=== PATIENT | male | born 1935 | race African-American/Black ===

== ENCOUNTER → 2016-11-03 | Day surgery (SDC) | payer OTHER ==
[~2016-11-03] MED LIST: ALBUTEROL2.5 MG/3 M; ASPIRIN81 M2 PO; CARVEDILOL12.5 MG PO; CLOPIDOGREL75 MG PO; FLEXERIL10 M1 PO; LASIX PO; NITROGLYCERIN0.3 M1; OMEPRAZOLE20 M1 PO; PROAIR HFA8.5 GM INH; SIMVASTATIN20 MG PO; SYMBICORT INH; XODOL 7.5-3001 EACH PO
--- NOTE | ~2016-11-03 | OR ---
Unit #: [id number] #: [id number] Patient: PAVEL RUIZ [id number] [address] [place], [place] [address] [id number] O MR#: [id number] NAME: PAVEL RUIZ ROOM: Date of Procedure: 11/03/2016 Admission Date: 11/03/2016 Surgeon: Jonathan Huber M.D. : 1935 Attending Physician: Jonathan Huber M.D. Primary Care Physician: Yasmine Miller M.D. OPERATIVE REPORT PREOPERATIVE DIAGNOSES Back pain, radiculopathy, spinal stenosis, spondylolisthesis, degenerative disk disease. POSTOPERATIVE DIAGNOSES Back pain, radiculopathy, spinal stenosis, spondylolisthesis, degenerative disk disease. PROCEDURE PERFORMED Lumbar epidural steroid injection with intravenous sedation and fluoroscopic guidance for needle localization. INDICATIONS FOR PROCEDURE The patient is a 80-year-old male with multiyear history of worsening back and lower extremity pain. His symptoms gotten quite significantly consistent with stenosis as well as nerve root impingement. He failed to settle with conservative rehabilitative treatment. Plan is for trial of epidural steroids based on his history, pathology, symptomatology, and treatment options. DESCRIPTION OF PROCEDURE The patient was placed in seated position. Standard monitors were applied. 2 mg of Versed were given for sedation and anxiolysis, which were adequate. Vital signs remained stable. Sterile prep and drape then of lumbar area was performed. The skin then at the L4-L5 level was localized with 1% lidocaine. An 18-gauge Hustead needle was then advanced via loss of resistance technique and fluoroscopic guidance in toward the epidural space. After confirming proper positioning with fluoroscopy and radiographic contrast, 80 mg of Depo-Medrol and 4 mL of 0.125% bupivacaine were deposited. The patient tolerated the procedure otherwise well and was discharged to recovery room in stable condition. Dictated by... Jonathan Huber M.D. LHP/modl TD: 11/04/2016 01:46 JOB #: [id number] Unit #: [id number] #: [id number] Patient: PAVEL RUIZ OPERATIVE REPORT Page 1 of 1 X Jonathan Huber MD X PROCEDURE OPERATIVE NOTE
== END | disposition home or self-care (01) ==
LOC: CCSC 07:49
DX: M51.16 Intervertebral disc disorders with radiculopathy, lumbar region (principal); M43.16 Spondylolisthesis, lumbar region; M48.06 Spinal stenosis, lumbar region
CPT/HCPCS: J1040; J2250

== ENCOUNTER → 2016-11-11 | Outpatient (CLI) | payer OTHER ==
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
== END | disposition home or self-care (01) ==
LOC: CMRI 12:42
DX: M54.12 Radiculopathy, cervical region (principal); M48.02 Spinal stenosis, cervical region; M99.82 Other biomechanical lesions of thoracic region; M25.78 Osteophyte, vertebrae; M43.12 Spondylolisthesis, cervical region
CPT/HCPCS: 72141

== ENCOUNTER → 2016-12-09 | Outpatient (CLI) | payer OTHER | END | disposition home or self-care (01) | LOC: CECH 13:19 | DX: I34.0 Nonrheumatic mitral (valve) insufficiency (principal); I10 Essential (primary) hypertension; I25.10 Atherosclerotic heart disease of native coronary artery without angina pectoris; R06.02 Shortness of breath; I51.7 Cardiomegaly; I36.1 Nonrheumatic tricuspid (valve) insufficiency; I37.1 Nonrheumatic pulmonary valve insufficiency | CPT/HCPCS: 93306 ==

== ENCOUNTER 2017-02-08 21:11 | Emergency (ER) | payer OTHER ==
[~2017-02-08] VITALS: Ht 182.9 cm; Wt 83.9 kg
--- NOTE | ~2017-02-08 | CR150 ---
[facility] A Service of [facility] & [facility] RADIOLOGY TEXT RESULTS PATIENT: PAVEL RUIZ LOCATION: [facility] : 37 UNIT #: [id number] AGE: [address]: Angel Bermudez SEX: M ORDER DR: [id number] [facility] [address] [place], [place] [address] [id number] E MR#: [id number] Acc #: [id number] NAME: PAVEL RUIZ : 1935 SEX: M STUDY DATE/TIME: 02/08/2017 22:58 UNIT: [facility] ROOM: STUDY DESCRIPTION: CR Hip Min 2 Views Lt Attending Physician: Angel Bermudez P.A.-C. Referring Physician: Rosa Calvert M.D. Ordering Physician: Angel Bermudez P.A.-C. Primary Care Physician: Rosa Calvert M.D. MEDICAL IMAGING REPORT This report is preliminary unless electronic signature is present EXAM Left hip, 02/08/2017. HISTORY 81-year-old male in the ED with lumbar back pain and left hip pain after a fall earlier today. TECHNIQUE Two-view left hip series. FINDINGS No fracture, dislocation, or other acute osseous abnormality is demonstrated. IMPRESSION Negative left hip series. Dictated by... Ruben Henry M.D. THIS IS AN ELECTRONICALLY VERIFIED REPORT Ruben Henry M.D. at 02/09/2017 9:57 PM LATANYAW/bert TD: 02/09/2017 10:00 JOB #: [id number] MEDICAL IMAGING REPORT Page 1 of 1 COPY
--- NOTE | ~2017-02-08 | CR181 ---
[facility] A Service of [facility] RADIOLOGY TEXT RESULTS PATIENT: PAVEL RUIZ LOCATION: [facility] : 36 UNIT #: [id number] AGE: [address]: Angel Bermudez SEX: M ORDER DR: [id number] [facility] [address] [place], [place] [address] [id number] E MR#: [id number] Acc #: [id number] NAME: PAVEL RUIZ : 1935 SEX: M STUDY DATE/TIME: 02/08/2017 22:54 UNIT: [facility] ROOM: STUDY DESCRIPTION: CR Lumbar Spine 2 or 3 Views Attending Physician: Angel Bermudez P.A.-C. Referring Physician: Rosa Calvert M.D. Ordering Physician: Angel Bermudez P.A.-C. Primary Care Physician: Rosa Calvert M.D. MEDICAL IMAGING REPORT This report is preliminary unless electronic signature is present EXAM Lumbar spine, 02/08/2017 HISTORY 81-year-old male in the ED complaining of lumbar back pain and left hip pain after a fall earlier today. TECHNIQUE Three-view lumbar spine series. FINDINGS The examination is limited by suboptimal radiographic exposure and positioning. There is no visible acute or chronic fracture deformity. Minimal to mild multilevel degenerative disc space changes. Lumbar vertebral alignment is normal. No change since the previous study of 10/22/2012. IMPRESSION 1. Limited study as noted above. 2. No acute osseous abnormality. 3. No change since 10/22/2012. Dictated by... Ruben Henry M.D. THIS IS AN ELECTRONICALLY VERIFIED REPORT Ruben Henry M.D. at 02/09/2017 9:57 PM Ephraim TD: 02/09/2017 09:57 JOB #: [id number] MEDICAL IMAGING REPORT [facility] A Service of [facility] RADIOLOGY TEXT RESULTS PATIENT: PAVEL RUIZ LOCATION: [facility] : 36 UNIT #: [id number] AGE: [address]: Angel Bermudez SEX: M ORDER DR: Page 1 of 1 COPY
== END 2017-02-09 | disposition home or self-care (01) ==
LOC: CFTX 21:11 → CED 21:11 → CFTX 22:50
DX: S39.012A Strain of muscle, fascia and tendon of lower back, initial encounter (principal); S70.02XA Contusion of left hip, initial encounter; I11.9 Hypertensive heart disease without heart failure; E78.00 Pure hypercholesterolemia, unspecified; V49.40XA Driver injured in collision with unspecified motor vehicles in traffic accident, initial encounter; Y92.410 Unspecified street and highway as the place of occurrence of the external cause
CPT/HCPCS: 72100; 73502; 99283